=== PATIENT | male | born 1950 ===

== ENCOUNTER 2021-08-15 14:20 | Inpatient (IN) | payer MEDICARE ==
[~2021-08-15] VITALS: Ht 172.7 cm; Wt 87.0 kg
[2021-09-13] VITALS (11 sets, daily range): BP systolic 109–140; BP diastolic 55–86; PULSE 8–85; TEMP 97–98.3
[2021-09-13 06:15] LABS: BASO # 0.1 K/mm3 (0.0-0.2); EOS # 0.3 K/mm3 (0.0-0.7); EOS % 4.3 % (0-4.0); GRAN # 3.3 K/mm3 (1.4-6.5); GRAN % 51.5 % (42.2-75.2); HEMATOCRIT 43.4 % (42.0-52.0); HEMOGLOBIN 15.1 g/dl (13.5-18.0); LYMPH # 1.9 K/mm3 (1.2-3.4); LYMPH % 30.7 % (20.0-51.0); MEAN CELL VOLUME 90 fl (80.0-100.0); MEAN CORPUSCULAR HEMOGLOBIN 31 pg (27.0-31.0); MEAN CORPUSCULAR HGB CONC 35 g/dl (33.0-37.0); MEAN PLATELET VOLUME 10.8 fl (7.4-10.4); MONO # 0.8 K/mm3 (0.1-0.6); MONO % 12.2 % (1.7-9.3); PLATELET COUNT 270 K/mm3 (130-400); RED BLOOD COUNT 4.82 M/mm3 (4.20-5.60); REDCELL DISTRIBUTION WIDTH-CV 12.4 % (11.5-14.5)
[2021-09-13] MEDS ORDERED: NATURAL SAW PA160 MG PO (06:28)
[2021-09-13 06:34] LABS: ALBUMIN 3.9 gm/dL (3.4-4.8); BILIRUBIN,TOTAL 0.7 mg/dL (0.2-1.2); CALCIUM 8.9 mg/dL (8.4-10.2); CREATININE, serum 1.05 mg/dL (0.72-1.25)
--- NOTE | 2021-09-13 13:01 | NUR ---
Patient arrives to room 349 at 1245, accompanied by TAX COMPLIANCE AGENT, Era. Patient denies pain except for discomfort and heavy feeling in his arms. Pt on oxygen at 2L/Nc at time of arrival, this was removed with sats at 100%. Incisions to abdomen x6 with skin glue, well approximated, no noted drainage. Morrell catheter with brown tinged urine, small amounts. Patient taking ice chips. Oriented to room and call light system. Patients sister at bedside. IV fluids infusing to 20g in right hand. Call light within reach.
--- NOTE | 2021-09-13 16:12 | NUR ---
RECEIVED REPORT FROM AMIRAH GERMAIN.
--- NOTE | 2021-09-13 17:00 | NUR ---
PT ALERT AND ORIENTED. PT DENIES PAIN WHILE LAYING DOWN, REPORTS SOME DISCOMFORT WHEN "DOING SIT UPS" AND SITTING UP IN BED. PT HAS CLEAR LUNGS TO AUSCULTATION. PT LAP SITES WELL APPROXIMATED, SOME GRANULATION TISSUE NOTED. NO ACTIVE BLEEDING. PT ABDOMEN SOFT TO PALPATION. PT HAS MEDEROS IN PLACE, SOME SEDIMENT NOTED AND SLIGHTLY DARKER, TEA COLORED URINE. PT CONVERSES FREELY, VISITORS PRESENT.
--- NOTE | 2021-09-13 20:00 | NUR ---
Pt. sitting up in bed at this time. Pt. is A&OX3, assessment complete. IV to rt. hand patent. Abd. incsions CDI. Morrell catheter to DD, red-tinged urine noted. Pt. reports pain at a 1 to abd. Pt. denies further needs, call light within reach.
[2021-09-14 03:10] VITALS: BP 121/57; PULSE 70; TEMP 98.3
[2021-09-14 06:39] LABS: HEMATOCRIT 39.8 % (42.0-52.0); HEMOGLOBIN 13.4 g/dl (13.5-18.0)
[2021-09-14 07:01] LABS: CALCIUM 8.6 mg/dL (8.4-10.2); CREATININE, serum 1.17 mg/dL (0.72-1.25); POTASSIUM 4.5 mmol/L (3.5-4.5)
[2021-09-14 07:56] VITALS: BP 115/77; PULSE 64; TEMP 97.8
--- NOTE | 2021-09-14 08:18 | NUR ---
Patient resting in bed. rounded & plan of care reviewed. Iv to Int. General diet breakfast ordered, patient encouraged to take it slow. Patient reports passing flatus. denies nausea. Lap site edges well, approximated. Open to air. Morrell to DD with adequate outout, urine peach, sediment. Will monitor. Patietn hoping to DC home
--- NOTE | 2021-09-14 11:38 | NUR ---
Patient ready for discharge. Wanting to get home. rounded. made aware & discharge orders obtained. Patient given pineda education, his sister in law & DPOA at bedside. She is a nurse and going to assist patient with cares. Follow up appts made. Med list reviewed & tylenol & motrin to use for pain as directed. Int dc. Patient dressed & his sisiter in law taking him home
== END 2021-09-14 11:49 | disposition home or self-care (01) | DRG 708 ==
LOC: INPTSU 09-13 05:22 → SURG 09-13 07:30
PROVIDERS: Surgery; ADMIT Urology
PROC: 8E0W4CZ Robotic Assisted Procedure of Trunk Region, Percutaneous Endoscopic Approach (ICD-10-PCS; 2021-09-13)
PROC: 8E0W4CZ Robotic Assisted Procedure of Trunk Region, Percutaneous Endoscopic Approach (ICD-10-PCS; 2021-09-13)
PROC: 0VT04ZZ Resection of Prostate, Percutaneous Endoscopic Approach (ICD-10-PCS; principal; 2021-09-13 07:30)
PROC: 0YU64JZ Supplement Left Inguinal Region with Synthetic Substitute, Percutaneous Endoscopic Approach (ICD-10-PCS; 2021-09-13 07:30)
DX: C61 Malignant neoplasm of prostate (principal); K40.90 Unilateral inguinal hernia, without obstruction or gangrene, not specified as recurrent
CPT/HCPCS: A4314; A9284; C1781; J0330; J0690; J1100; J1885; J2405; J2704; J3010; J7120